=== PATIENT | female | born 1995 | race Caucasian/White ===

== ENCOUNTER 2016-08-27 23:59 | Emergency (ER) | payer OTHER ==
[~2016-08-27] VITALS: Ht 154.9 cm; Wt 70.8 kg
[2016-08-28 00:03] VITALS: TEMP 36.8; Ht 154.9 cm; Wt 70.8 kg
[2016-08-28 00:17] LABS: BASO % 1.4 %; BASO ABS # 0.09 K/uL (0-0.2); COMPLETE YES; EOS % 6.3 %; HEMATOCRIT 37.4 % (37-47); IG% 0.2 %; LYMPH % 35.2 %; LYMPH ABS # 2.28 K/uL (1.2-3.4); MEAN CORPUSCULAR HEMOGLOBIN 29.3 pg (25-34); MEAN CORPUSCULAR HGB CONC 33.7 g/dl (32-36); MEAN PLATELET VOLUME 9.8 fL (7.4-10.4); MONO % 7.3 %; NEUT % 49.6 %; PLATELET COUNT 295 K/uL (130-400); WHITE BLOOD COUNT 6.48 K/uL (4.8-10.8)
--- NOTE | 2016-08-28 00:20 | EMERGENCY ROOM VISIT NOTE ---
History Report prepared by Gianniibnatalia: Shakira Amos Under the Supervision of: Dr. Ismael Torres D.O. First contact with patient: 00:03 Chief Complaint: ABDOMINAL PAIN Stated Complaint: ABDOMINAL PAIN Nursing Triage Summary: Pt brought in by EMS. Pt woke up at 10 am with upper abdominal pain that radiates to back. Vomited x3. History of Present Illness The patient is a 21 year old female who presents to the Emergency Room with complaints of persistent abdominal pain starting 2 hours ago. She presents to the ED by EMS. She was given Zofran and Morphine en route which helped. She was sleeping and was woken up by the pain. She had eaten [employer] several hours before. The pain at onset was an 8/10 in severity. She currently rates her discomfort as a 4/10 in severity. She also reports pain in her back and neck. She reports diaphoresis, chills, and vomiting at the onset of her symptoms. She denies any trauma or injury. Her last normal menstrual period was 1 week ago. She had similar symptoms before, but the cause was unknown. Source of History: patient Onset: 2 hours ago Position: abdomen Symptom Intensity: 8/10 at worst, 4/10 currently Quality: other (pain) Timing: other (persistent) Modifying Factors (Relieving): other (Zofran, Morphine) Associated Symptoms: + back pain, + chills, + diaphoresis, + neck pain, + vomiting Review of Systems See HPI for pertinent positives and negatives. A total of ten systems were reviewed and were otherwise negative. Past Medical & Surgical Medical Problems: (1) No Known Active Medical Problems Family History No pertinent family history stated. Social History Smoking Status: Never Smoker Marital Status: Occupation Status: unemployed Physical Exam Vital Signs Date Time Temp Pulse Resp B/P Pulse Ox O2 Delivery O2 Flow Rate FiO2 08/28/16 00:03 36.8 91 16 100/84 98 Room Air Physical Exam GENERAL: Awake, alert, well-appearing, in no distress HENT: Normocephalic, atraumatic. Oropharynx unremarkable. EYES: Normal conjunctiva. Sclera non-icteric. NECK: Supple. No nuchal rigidity. FROM. No JVD. RESPIRATORY: Clear to auscultation. CARDIAC: Regular rate, normal rhythm. Extremities warm and well perfused. Pulses equal. ABDOMEN: Soft, non-distended. No tenderness to palpation. No rebound or guarding. No masses. RECTAL: Deferred. MUSCULOSKELETAL: Chest examination reveals no tenderness. The back is symmetrical on inspection without obvious abnormality. There is no CVA tenderness to palpation. No joint edema. LOWER EXTREMITIES: Calves are equal size bilaterally and non-tender. No edema. No discoloration. NEURO: Normal sensorium. No sensory or motor deficits noted. SKIN: No rash or jaundice noted. Medical Decision & Procedures Laboratory Results 08/27/16 23:38 Red Blood Count 4.30, Mean Corpuscular Volume 87.0, Mean Corpuscular Hemoglobin 29.3, Mean Corpuscular Hemoglobin Concent 33.7, Mean Platelet Volume 9.8, Neutrophils (%) (Auto) 49.6, Lymphocytes (%) (Auto) 35.2, Monocytes (%) (Auto) 7.3, Eosinophils (%) (Auto) 6.3, Basophils (%) (Auto) 1.4, Neutrophils # (Auto) 3.22, Lymphocytes # (Auto) 2.28, Monocytes # (Auto) 0.47, Eosinophils # (Auto) 0.41, Basophils # (Auto) 0.09 08/27/16 23:38 Test 08/27/16 23:38 08/28/16 00:10 White Blood Count 6.48 K/uL (4.8-10.8) Red Blood Count 4.30 M/uL (4.2-5.4) Hemoglobin 12.6 g/dL (12.0-16.0) Hematocrit 37.4 % (37-47) Mean Corpuscular Volume 87.0 fL (80-100) Mean Corpuscular Hemoglobin 29.3 pg (25-34) Mean Corpuscular Hemoglobin Concent 33.7 g/dl (32-36) Platelet Count 295 K/uL (130-400) Mean Platelet Volume 9.8 fL (7.4-10.4) Neutrophils (%) (Auto) 49.6 % Lymphocytes (%) (Auto) 35.2 % Monocytes (%) (Auto) 7.3 % Eosinophils (%) (Auto) 6.3 % Basophils (%) (Auto) 1.4 % Neutrophils # (Auto) 3.22 K/uL (1.4-6.5) Lymphocytes # (Auto) 2.28 K/uL (1.2-3.4) Monocytes # (Auto) 0.47 K/uL (0.11-0.59) Eosinophils # (Auto) 0.41 K/uL (0-0.5) Basophils # (Auto) 0.09 K/uL (0-0.2) RDW Standard Deviation 41.2 fL (36.4-46.3) RDW Coefficient of Variation 12.8 % (11.5-14.5) Immature Granulocyte % (Auto) 0.2 % Immature Granulocyte # (Auto) 0.01 K/uL (0.00-0.02) Anion Gap 8.0 mmol/L (3-11) Est Creatinine Clear Calc Drug Dose 147.0 ml/min Estimated GFR () > 150.0 Estimated GFR (Non- 133.9 BUN/Creatinine Ratio 28.9 (10-20) Calcium Level 8.9 mg/dl (8.5-10.1) Total Bilirubin 0.4 mg/dl (0.2-1) Direct Bilirubin < 0.1 mg/dl (0-0.2) Aspartate Amino Transf (AST/SGOT) 68 U/L (15-37) Alanine Aminotransferase (ALT/SGPT) 78 U/L (12-78) Alkaline Phosphatase 81 U/L (45-117) Total Protein 7.5 gm/dl (6.4-8.2) Albumin 4.0 gm/dl (3.4-5.0) Lipase 157 U/L (73-393) Urine Color YELLOW Urine Appearance CLOUDY (CLEAR) Urine pH 6.0 (4.5-7.5) Urine Specific [place] 1.025 (1.000-1.030) Urine Protein NEG (NEG) Urine Glucose (UA) NEG (NEG) Urine Ketones NEG (NEG) Urine Occult Blood NEG (NEG) Urine Nitrite NEG (NEG) Urine Bilirubin NEG (NEG) Urine Urobilinogen NEG (NEG) Urine Leukocyte Esterase NEG (NEG) Urine WBC (Auto) 1-5 /hpf (0-5) Urine RBC (Auto) 0-4 /hpf (0-4) Urine Hyaline Casts (Auto) 1-5 /lpf (0-5) Urine Epithelial Cells (Auto) >30 /lpf (0-5) Urine Bacteria (Auto) NEG (NEG) Urine Test NEG (NEG) Laboratory results reviewed by me ED Course 0004: The patient was evaluated in room B2. A complete history and physical exam was performed. 0102: I reevaluated the patient. She is resting comfortably, in no distress. I discussed results and discharge instructions: she verbalized understanding and agreement. The patient is ready for discharge. Medical Decision Differential diagnoses include but are not limited to; biliary colic, cholelithiasis, cholecystitis, pancreatitis, colitis. Repeat examination patient 10 5 AM patient is in no distress no significant pain. Patient has normal labs I do not suspect any infection at this time. Patient likely was experiencing biliary colic. I discussed evaluation with the patient and patient's significant other bedside. Impression Primary Impression: Upper abdominal pain Additional Impression: Biliary colic Scribe Attestation The scribe's documentation has been prepared under my direction and personally reviewed by me in its entirety. I confirm that the note above accurately reflects all work, treatment, procedures, and medical decision making performed by me. Departure Information Dispostion Home / Self-Care Patient Instructions Abdominal Pain - [facility], [facility] Health Problem Qualifiers
[2016-08-28 00:21] LABS: URINE APPEARANCE CLOUDY (CLEAR); URINE BILIRUBIN NEG (NEG); URINE COLOR YELLOW; URINE EPITHELIAL CELL AUTO >30 /lpf (0-5); URINE NITRITE NEG (NEG); URINE SPECIFIC GRAVITY 1.025 (1.000-1.030); UROBILINOGEN NEG (NEG); ZZUR CULT IF INDIC CLEAN CATCH NO
[2016-08-28 00:29] LABS: MANUAL MICROSCOPIC REQUIRED? NO; REVIEW REQ? NO
[2016-08-28 00:40] LABS: ALT/SGPT 78 U/L (12-78); AST/SGOT 68 U/L (15-37); BLOOD UREA NITROGEN 16 mg/dl (7-18); BUN/CREATININE RATIO 28.9 (10-20); CALCIUM 8.9 mg/dl (8.5-10.1); CARBON DIOXIDE 28 mmol/L (21-32); CHLORIDE 106 mmol/L (98-107); CREATININE 0.54 mg/dl (0.60-1.20); GLUCOSE 92 mg/dl (70-99); POTASSIUM 3.7 mmol/L (3.5-5.1); SODIUM 142 mmol/L (136-145)
[2016-08-28 00:42] LABS: ALKALINE PHOSPHATASE 81 U/L (45-117)
[2016-08-28] MEDS ORDERED: KETOROLAC TROMETHAMINE 30 MG/ML VIAL IV STA (01:21)
[2016-08-28 01:28] VITALS: BP 104/70; PULSE 78; O2SAT 98
== END 2016-08-28 01:29 | disposition home or self-care (01) ==
LOC: C.EDB 08-28 00:03
DX: R10.10 Upper abdominal pain, unspecified (principal); K80.50 Calculus of bile duct without cholangitis or cholecystitis without obstruction